=== PATIENT | female | born 2000 | race African-American/Black ===

== ENCOUNTER 2024-01-25 09:04 | Emergency (ER) | payer OTHER, SELFPAY ==
[2024-01-25] VITALS (8 sets, daily range): BP systolic 96–107; BP diastolic 64–73
--- NOTE | 2024-01-25 09:29 | ED.GENMED ---
History of Present Illness
General
Chief Complaint: Abdominal Pain
Source: patient
Time Seen by Provider: 01/25/24 09:18
Travel History
Have you had any contact with someone who has COVID-19?: No
Do you have any symptoms of coronavirus? Fever > 100 degrees, chills, cough, shortness of breath, sore throat, loss of taste or smell, muscle aches, or headache?: No
History of Present Illness
History of Present Illness:
This patient is a 23-year-old female presents emergency department with complaints of lower abdominal pain. The pain first began a few days ago, but got progressed particularly worse this morning which prompted her visit here. Since arrival, the
pain is described as 'manageable'. The pain is episodic without specific provoking or relieving factors and is described as severe 'cramping'. She notes pain across her entire lower abdomen without specific focality to right or left side. She
denies upper mid abdominal pain, back pain, dyspnea, urinary symptoms. Patient has a history of anemia for which she takes iron, and she would like to know what her blood count is today. She worries that she may be more anemic than usual given
that for the last few days she is having episodes of lightheadedness as well as overall fatigue. She denies nosebleeds, vaginal bleeding, hematuria, or bleeding elsewhere. Currently patient describes mild to moderate lower abdominal pain without
any other symptoms. She denies fever, chills, nausea, vomiting, anorexia, or other complaints.LMP was January 07 as expected. In review of systems, patient also notes chest pain that she describes as feeling like a 'weight' that is been there for
months to years, episodic, without specific provoking or relieving factors. She does not have it now.
Past History
Past History
ED Past Medical History: Other (Anemia)
ED Past Surgical History:
Social History
Tobacco: Non-smoker
Alcohol: None
Drug: None
Employment: Employed
Phy Exam
Physical Exam
Physical Exam:
GENERAL: Alert , in no apparent distress
EYE: pupils equal and reactive, conjunctive a pink
NECK: Supple, no significant adenopathy.
ENT: o/p clr, mmm.
CARDIAC: Regular rate and rhythm .
LUNGS: Clear breath sounds bilaterally, no acute respiratory distress, no wheezes/rales/rhonchi
ABDOMEN: Soft, mild lower abdominal tenderness, no r/g, no cvat
NEUROLOGICAL: Alert and oriented, no focal neuro deficits
SKIN: Warm and dry, skin intact.
MUSCULOSKELETAL: No edema, well perfused.
PSYCH: Normal and appropriate interaction.
Course
Orders/Labs/Results
Orders:
Orders
01/25/24 09:32
Cardiac Monitoring- Treatment ONCE
Urinalysis Reflex To Culture Urgent
01/25/24 09:33
Electrocardiogram (*1) Stat
Reason for Study: Abdominal Pain
CT Abd/Pel (IV only)-DH only Urgent
Comment:
Reason For Exam: lower abd pain
EKG- Treatment ONCE
Test Result ONCE
01/25/24 09:35
Complete Blood Count/No Diff Urgent
Comprehensive Metabolic Panel Urgent
HCG, Serum Qualitative Screen Urgent
01/25/24 10:58
* Blood Bank Products Urgent
Blood Bank Products: *Packed RBC Leuko(PRBC's)
Quantity: 1
Transfuse Today: Yes
Reason: Anemia
IV Insert/Care/Rem.- Treatment PRN
01/25/24 11:05
Type+Screen Urgent
Abnormal Lab Results
01/25/24 01/25/24
09:35 11:05
WBC 4.5 L 10^3/uL
(4.8-10.8)
RBC 4.10 L 10^6/uL
(4.20-5.40)
Hgb 7.2 L g/dL
(12.0-16.0)
Hct 24.7 L %
(37.0-47.0)
MCV 60.2 L fL
(81.0-99.0)
MCH 17.6 L pg
(27.0-31.0)
MCHC 29.1 L g/dL
(33.0-37.0)
RDW 23.5 H %
(11.5-14.5)
Chloride 109 H mmol/L
(98-107)
BUN 4 L mg/dl
(7-17)
Creatinine 0.5 L mg/dL
(0.6-1.0)
Crossmatch IS Only See Detail
01/25/24 09:35
01/25/24 09:35
Vital Signs
Initial and Last Documented VS:
Initial Vital Signs
Temp Pulse Resp BP Pulse Ox
98.2 F 79 16 107/73 100
01/25/24 09:09 01/25/24 09:09 01/25/24 09:09 01/25/24 09:09 01/25/24 09:09
Last Documented Vital Signs
Temp Pulse Resp BP Pulse Ox
98.5 F 81 16 99/64 100
01/25/24 14:56 01/25/24 14:56 01/25/24 14:56 01/25/24 14:56 01/25/24 14:56
*Critical Care Note
Total Time (30-74mins, 75-104mins- exclusive of procedures): Not Applicable
Update Note
Update Note:
Patient presents to the Emergency Department with ___abdominal pain
Number and Complexity of Problems Addressed at the Encounter
� Chronic conditions affecting care:
� Acute Exacerbation and/or Progression of Chronic Illness:
� Differential Diagnosis includes: But not limited to menstrual cramps, appendicitis, diverticulitis, etc. etc.
Amount and/or Complexity of Data to be Reviewed and Analyzed
� I performed an independent evaluation of and my interpretation is:
EKG:read by me, nsr, nl rate,nlaxis, no acute ischemic changes
CT:Approximate 2 cm possibly minimally complex right ovarian cyst. Small volume free fluid in the right true pelvis which could be the sequela of recently ruptured or partially ruptured right ovarian cyst. As a result of the
position of the right ovary, if Pelvic Ultrasound is considered, the right ovary likely nott able to be visualized with endovaginal imaging.
Somewhat contracted gallbladder likely postprandial, food material noted within the stomach. No biliary tract dilatation.
Xrays:
Laboratory Studies: neutropenia, anemia 7.2 (no prior to compare, pt unaware of baseline Hgb)
Other:
� Review of other/old records reveals:
� Clinical information was obtained by an independent historian:
� Prescriptions/Medications Considered but not given:
� Further testing considered but not performed:
Risk of Complications and/or Morbidity or Mortality of Patient Management
� Social determinants of health affecting care:
� Discussion with other providers (PCP, Hospitalists, Consultants, etc):
� Escalation of care including admission/observation vs risk of discharge considered:1104 am pt very comfortable, denies pain, in nad, on phone, well appearing. Clinically I highly doubt ovarian torsion given exam, comfort, etc.
Anemia noted...no prior to compare. Case d/w dr Varela, aware of hx, phys, labs etc...recommends/agrees with one unit prbc's now, and ulatimately as outpt she will likely need Fe infusion. Pt goes to residency clinic at [facility], no number
available for me to cntact today. Pt aware of plan now, r/b tx explained, c/s signed and she will be able to f/u with either our heme doctors or her clinic.
ED Attending Note
-
Portions of this chart may have been created with voice recognition software.� Occasional wrong word or��sound alike� substitutions may have occurred due to the inherent limitations of voice recognition software.
Discharge Plan
Departure
Patient Disposition: Home (Routine Discharge)
Date of Disposition: 01/25/24
Time of Disposition: 11:12
Patient with high blood pressure during this ER visit?: No
Condition: Good
Discharge Problem:
Anemia, Ovarian cyst
Instructions: Anemia Caused by Low Iron, Adult (DC), Ovarian Cyst (DC), Abdominal Pain
Referrals:
PRIVATE,PHYSICIAN [Family Provider] -
Julio Varela MD [Active] - Follow up in 1 week
Stand Alone Forms: Return to Work
Activity Restrictions/Additional Instructions:
PLEASE CONTINUE TO TAKE IRON SUPPLEMENTS DAILY. IF YOU DEVELOP DIZZINESS, CHEST PAIN, TROUBLE BREATHING, PALPITATIONS, PERSISTENT/NEW ABDOMINAL PAIN, BLEEDING, OR OTHER WORRISOME SIGNS, GO TO THE ER IMMEDIATELY!
WE SUSPECT YOU WILL NEED AN IRON INFUSION IN THE NEAR FUTRUE. PLEASE CONTACT EITHER DR BLUE, OR DR VARELA, TO [facility] FOR THIS CLOSE FOLLOW UP SOON POSSIBLE. THIS IS VERY IMPORTANT!
Interventions
Interventions:
*Risk Screen - Suicide Last Done: 01/25/24 09:09
*General Assessment Last Done: 01/25/24 09:09
*Neglect/Abuse Screening Last Done: 01/25/24 09:09
ED- Fall Risk Assessment Last Done: 01/25/24 09:51
*ED COVID-19 Vaccine History Last Done: 01/25/24 09:25
WR-Krbipw-Fndmcpzqox Assessment Last Done: 01/25/24 09:25
[2024-01-25 09:51] LABS: Hematocrit 24.7 % (37.0-47.0); Hemoglobin 7.2 g/dL (12.0-16.0); Mean Corp Hgb Conc. 29.1 g/dL (33.0-37.0); Mean Corpuscular Hgb 17.6 pg (27.0-31.0); Mean Corpuscular Volume 60.2 fL (81.0-99.0); Platelet Count 297 10^3/uL (130-400); Red Cell Dist. Width 23.5 % (11.5-14.5); White Blood Cell Count 4.5 10^3/uL (4.8-10.8)
[2024-01-25 10:01] LABS: HCG, Serum Qualitative Screen Negative
[2024-01-25 10:03] LABS: ALT (SGPT) 10 U/L (0-35); AST (SGOT) 19 U/L (14-36); Albumin 3.9 g/dl (3.5-5.0); Alkaline Phosphatase 58 U/L (38-126); Blood Urea Nitrogen 4 mg/dl (7-17); Calcium 8.6 mg/dl (8.4-10.2); Carbon Dioxide 22 mmol/L (22-30); Chloride 109 mmol/L (98-107); Glucose 86 mg/dl (70-99); Potassium 3.6 mmol/L (3.5-5.1); Sodium 136 mmol/L (135-145); Total Protein 7.5 g/dl (6.3-8.2); eGFR > 60.00
== END 2024-01-25 15:36 | disposition home or self-care (01) ==
LOC: EMR 09:04
PROVIDERS: EMERGENCY PHYSICIAN Emergency Medicine
DX: D64.9 Anemia, unspecified (principal); N83.209 Unspecified ovarian cyst, unspecified side
CPT/HCPCS: 99284; 36430; 74177; 80053; 84703; 85027; 86850; 86900; 86901; 86920; 93005; P9016; Q9967

== ENCOUNTER → 2024-03-12 08:48 | Outpatient (REF) | payer OTHER, SELFPAY ==
[2024-03-13 20:17] LABS: Rubella Positive
[2024-03-14 01:14] LABS: Hepatitis B Surface Antibody Negative
[2024-03-14 21:18] LABS: Quantiferon Mitogen minus NIL >10.00 IU/mL; Quantiferon NIL 0.03 IU/mL; Quantiferon TB Gold Plus Negative (Negative)
== END ==
LOC: OHS 08:48
PROVIDERS: ATTENDING PHYSICIAN Nurse Practitioner Family
DX: Z23 Encounter for immunization (principal)
CPT/HCPCS: 36415; 86480; 86706; 86735; 86762; 86765; 86787

== ENCOUNTER 2024-06-06 02:26 | Emergency (ER) | payer OTHER, SELFPAY ==
[2024-06-06 02:28] VITALS: BP 98/60
--- NOTE | 2024-06-06 02:55 | ED.GENMED ---
History of Present Illness
General
Chief Complaint: Abdominal Pain
Source: patient and spouse
Time Seen by Provider: 06/06/24 02:44
History of Present Illness
History of Present Illness:
23-year-old female who is feeling prickly well until approximate 1:30 AM when she developed discomfort across her lower abdomen/pelvic area associated with mild nausea, no vomiting. Pain is not localized to 1 side versus another. She denies
associated chest pain, shortness of breath, fever, chills, vomiting, urinary symptoms, vaginal discharge or bleeding, constipation, diarrhea. Pain is worse with certain movements.
Past History
Past History
ED Past Medical History: Other (Anemia, ovarian cyst)
ED Past Surgical History:
Social History
Tobacco: Non-smoker
Alcohol: None
Drug: None
Personal:
Living: with family
Employment: Employed
Phy Exam
Physical Exam
Physical Exam:
GENERAL: Alert , in no apparent distress
EYE: pupils equal and reactive
NECK: Supple, no significant adenopathy.
ENT: o/p clr, mmm.
CARDIAC: Regular rate and rhythm .
LUNGS: Clear breath sounds bilaterally, no acute respiratory distress, no wheezes/rales/rhonchi
ABDOMEN: Soft, diffuse lower abdominal Tenderness, no r/g, no cvat
NEUROLOGICAL: Alert and oriented, no focal neuro deficits
SKIN: Warm and dry, skin intact.
MUSCULOSKELETAL: No edema, well perfused.
PSYCH: Normal and appropriate interaction.
Course
Orders/Labs/Results
Orders:
Orders
06/06/24 02:52
0.9% Sodium Chloride 500 ml [Nss] 500 ml IV BOLUS
Ketorolac [Toradol] 15 mg IV NOW STA
06/06/24 02:54
Test Result ONCE
US Pelvis W Transvag Combined Urgent
Reason For Exam: LOWER PELVIC/ABD PAIN
06/06/24 03:04
Complete Blood Count/No Diff Urgent
Comprehensive Metabolic Panel Urgent
HCG, Serum Qualitative Screen Urgent
06/06/24 03:58
0.9% Sodium Chloride 1000 ml [Nss] 1,000 ml IV BOLUS
06/06/24 04:54
CT Abd/pel W Iv And Oral Contr Urgent
Comment:
Reason For Exam: abdominal pain
Iohexol [Omnipaque] See Protocol PO NOW STA
Abnormal Lab Results
06/06/24
03:04
WBC 12.0 H 10^3/uL
(4.8-10.8)
RBC 3.82 L 10^6/uL
(4.20-5.40)
Hgb 7.9 L g/dL
(12.0-16.0)
Hct 24.4 L %
(37.0-47.0)
MCV 63.9 L fL
(81.0-99.0)
MCH 20.7 L pg
(27.0-31.0)
MCHC 32.4 L g/dL
(33.0-37.0)
RDW 21.0 H %
(11.5-14.5)
Potassium 3.2 L mmol/L
(3.5-5.1)
Glucose 122 H mg/dl
(70-99)
06/06/24 03:04
06/06/24 03:04
Vital Signs
Initial and Last Documented VS:
Initial Vital Signs
Temp Pulse Resp BP Pulse Ox
98.0 F 101 18 98/60 100
06/06/24 02:28 06/06/24 02:28 06/06/24 02:28 06/06/24 02:28 06/06/24 02:28
Last Documented Vital Signs
Temp Pulse Resp BP Pulse Ox
98.0 F 85 16 110/76 100
06/06/24 02:28 06/06/24 05:09 06/06/24 05:09 06/06/24 05:09 06/06/24 05:09
Update Note
Update Note:
Patient presents to the Emergency Department with abdominal/pelvic pain
Number and Complexity of Problems Addressed at the Encounter
� Chronic conditions affecting care:
� Acute Exacerbation and/or Progression of Chronic Illness:
� Differential Diagnosis includes: But not limited to ruptured ovarian cyst, ovarian torsion, ectopic , cystitis, appendicitis, etc. etc.
Amount and/or Complexity of Data to be Reviewed and Analyzed
� I performed an independent evaluation of and my interpretation is:
EKG:
CT:
Xrays:
Laboratory Studies:
Other: Vision report ultrasound pelvis trace fluid in endometrial cavity endometrial thickness 3 mm right ovary normal with normal flow left ovary normal with normal flow no free fluid in the pelvis
� Review of other/old records reveals:
� Clinical information was obtained by an independent historian: who is bedside
� Prescriptions/Medications Considered but not given:
� Further testing considered but not performed:
Risk of Complications and/or Morbidity or Mortality of Patient Management
� Social determinants of health affecting care:
� Discussion with other providers (PCP, Hospitalists, Consultants, etc):
� Escalation of care including admission/observation vs risk of discharge considered:401 AM Pt resting comfortably, pain improved, declines further pain meds. Awaiting US.
Given ultrasound essentially unremarkable, highly doubt TOA, ovarian torsion, ruptured ovarian cyst, etc. as a cause of patient's pain. Will order CAT scan of abdomen and pelvis to further investigate.
ED Attending Note
-
Portions of this chart may have been created with voice recognition software.� Occasional wrong word or��sound alike� substitutions may have occurred due to the inherent limitations of voice recognition software.
Discharge Plan
Departure
Patient with high blood pressure during this ER visit?: No
Condition: Good
Discharge Problem:
Abdominal pain
Instructions: Abdominal Pain
Prescriptions:
No Action
No Current Medications
0
Referrals:
NONE,* [Family Provider] -
Activity Restrictions/Additional Instructions:
PLEASE SEE YOUR DOCTOR IN CLOSE FOLLOW UP. IF YOU DEVELOP FEVER, CHILLS, VOMITING, CHEST PAIN, TROUBLE BREATHING, INCREASING/NEW/PERSISTENT PAIN, OR OTHER WORRISOME SIGNS, GO TO THE ER IMMEDIATELY!
Interventions
Interventions:
*Risk Screen - Suicide Last Done: 06/06/24 02:28
*General Assessment Last Done: 06/06/24 02:28
*Neglect/Abuse Screening Last Done: 06/06/24 02:28
ED- Fall Risk Assessment Last Done: 06/06/24 03:27
DU-Zmdgtg-Ynjvafszrz Assessment Last Done: 06/06/24 03:27
Discharge Date and Time
Print Language: HAITIAN
[2024-06-06] MEDS: TORADOL 15 MG IV ×2 (03:04→08:01)
[2024-06-06] MEDS: NSS 500 IV (03:04)
[2024-06-06 03:14] LABS: Hematocrit 24.4 % (37.0-47.0); Hemoglobin 7.9 g/dL (12.0-16.0); Mean Corp Hgb Conc. 32.4 g/dL (33.0-37.0); Mean Corpuscular Hgb 20.7 pg (27.0-31.0); Mean Corpuscular Volume 63.9 fL (81.0-99.0); Platelet Count 253 10^3/uL (130-400); Red Blood Cell Count 3.82 10^6/uL (4.20-5.40)
[2024-06-06 03:19] LABS: HCG, Serum Qualitative Screen Negative
[2024-06-06 03:25] LABS: ALT (SGPT) < 10 U/L (0-35); AST (SGOT) 20 U/L (14-36); Albumin 4.1 g/dl (3.5-5.0); Alkaline Phosphatase 60 U/L (38-126); Blood Urea Nitrogen 8 mg/dl (7-17); Calcium 9.4 mg/dl (8.4-10.2); Carbon Dioxide 24 mmol/L (22-30); Chloride 105 mmol/L (98-107); Glucose 122 mg/dl (70-99); Potassium 3.2 mmol/L (3.5-5.1); Sodium 137 mmol/L (135-145); Total Bilirubin 0.7 mg/dl (0.2-1.3); Total Protein 7.4 g/dl (6.3-8.2); eGFR > 60.00
[2024-06-06] MEDS: NSS 1000 IV (03:58)
--- NOTE | 2024-06-06 04:01 | EDRN ---
Patients pain is much better, not full for ultrasound yet, hung more fluids.
[2024-06-06] MEDS: OMNIPAQUE 50 ML PO (05:04)
[2024-06-06 05:09] VITALS: BP 110/76
--- NOTE | 2024-06-06 05:10 | EDRN ---
Updated patient on results and plan for CT scan, aware plan for drinking contrast and then will go for CT around 0700.
--- NOTE | 2024-06-06 06:49 | EDRN ---
Encouraged patient to finish up drinking contrast, as she will be going to CT soon.
[2024-06-06 08:03] VITALS: BP 122/80
[2024-06-06 09:29] LABS: Urine Albumin Negative (Neg - Trace); Urine Bilirubin Negative (Negative); Urine Character Clear (Clear); Urine Color Yellow; Urine Glucose Negative (Negative); Urine Ketone Negative (Negative); Urine Leukocyte 1+ (Negative); Urine Nitrite Negative (Negative); Urine Occult Blood 4+ (Negative); Urine Specific Gravity 1.005 (<1.030); Urine Urobilinogen Negative (Neg - 1+); Urine pH 6.5 (5.0-9.0)
[2024-06-06 09:35] LABS: Urine Bacteria Few (Negative); Urine Red Blood Cell 0-2 /HPF (0-2)
--- NOTE | 2024-06-06 09:37 | ED.ADDNOTE ---
ED Addendum
ED Addendum
ED Addendum Note:
I evaluated patient at bedside at 9:30 AM, white count slightly elevated 12.0, chemistries unremarkable however potassium noted to be at 3.2, hCG negative. Pelvic ultrasound reportedly unremarkable. CT of the abdomen pelvis shows no clear cause of
her pain but did show some mild bladder wall did show mild bladder wall thickening�urinalysis unremarkable. I informed patient of the CT results.
[2024-06-06] MEDS: KCL ELIXIR 40 MEQ PO (09:53)
== END 2024-06-06 10:00 | disposition home or self-care (01) ==
LOC: EMR 02:26
PROVIDERS: Emergency Medicine; EMERGENCY PHYSICIAN Emergency Medicine
DX: R10.30 Lower abdominal pain, unspecified (principal); D64.9 Anemia, unspecified
CPT/HCPCS: 99284; 96374; 96376; 96361; 74177; 76830; 76856; 80053; 81003; 81015; 84703; 85027; 87086; Q9967

== ENCOUNTER 2025-03-20 20:07 | Emergency (ER) | payer OTHER, SELFPAY ==
[2025-03-20 20:11] VITALS: BP 105/72
[2025-03-20] MEDS: TYLENOL ORAL SOLUTION 650 MG PO (20:27)
[2025-03-20] MEDS: Pyridium 100 MG PO (20:28)
[2025-03-20 20:31] LABS: Urine Albumin 1+ (Neg - Trace); Urine Bilirubin Negative (Negative); Urine Character Clear (Clear); Urine Color Yellow; Urine Glucose Negative (Negative); Urine Ketone Negative (Negative); Urine Leukocyte 1+ (Negative); Urine Nitrite Negative (Negative); Urine Occult Blood Negative (Negative); Urine Specific Gravity 1.015 (<1.030); Urine Urobilinogen 2+ (Neg - 1+)
[2025-03-20 20:42] LABS: % Basophils 1.1 % (0-2); % Eosinophils 7.2 % (0-6); % Immature Granulocytes 0.2 % (0-0.5); % Monocytes 11.1 % (1.7-9.3); % Neutrophils 30.4 % (42.2-75.2); Absolute Basophils 0.1 10^3/uL (0-0.2); Absolute Eosinophils 0.4 10^3/uL (0-0.7); Absolute Lymphocytes 2.8 10^3/uL (1.2-3.4); Absolute Monocytes 0.6 10^3/uL (0.1-0.6); Absolute Neutrophils 1.7 10^3/uL (1.4-6.5); Hematocrit 28.8 % (37.0-47.0); Hemoglobin 8.5 g/dL (12.0-16.0); Mean Corp Hgb Conc. 29.5 g/dL (33.0-37.0); Mean Corpuscular Hgb 18.6 pg (27.0-31.0); Mean Platelet Volume 10.4 fL (7.4-10.4); Nucleated Red Blood Cells % 0 %; Platelet Count 362 10^3/uL (130-400); Red Blood Cell Count 4.57 10^6/uL (4.20-5.40); Red Cell Dist. Width 22.1 % (11.5-14.5); White Blood Cell Count 5.6 10^3/uL (4.8-10.8)
[2025-03-20 20:43] LABS: Urine Squamous Cell 26-30 /LPF (Few)
[2025-03-20 20:44] LABS: Urine Bacteria Many (Negative); Urine Mucus Moderate; Urine Red Blood Cell 0-2 /HPF (0-2)
[2025-03-20 20:48] LABS: HCG, Serum Qualitative Screen Negative
[2025-03-20 20:50] LABS: Anisocytosis 1+; Hypochromasia 3+; Microcytosis 1+; Normal RBC Morphology No; Target Cells 1+
[2025-03-20 21:24] LABS: ALT (SGPT) 11 U/L (0-35); AST (SGOT) 18 U/L (14-36); Albumin 4.8 g/dl (3.5-5.0); Alkaline Phosphatase 45 U/L (38-126); Blood Urea Nitrogen 7 mg/dl (7-17); Calcium 9.6 mg/dl (8.4-10.2); Carbon Dioxide 25 mmol/L (22-30); Chloride 110 mmol/L (98-107); Glucose 112 mg/dl (70-99); Potassium 3.7 mmol/L (3.5-5.1); Sodium 144 mmol/L (135-145); Total Bilirubin 1.1 mg/dl (0.2-1.3); eGFR > 60.00
[2025-03-20 23:02] VITALS: BP 102/67
[2025-03-21 00:30] VITALS: BP 100/69
[2025-03-21 00:32] VITALS: BMI 19.0
--- NOTE | 2025-03-21 01:10 | ED.GENMED ---
History of Present Illness
General
Chief Complaint: Urinary Symptoms
Time Seen by Provider: 03/21/25 00:26
History of Present Illness
History of Present Illness:
24-year-old female with history of anemia presenting to the emergency department for 1 to 2 weeks of urinary symptoms. Patient reports pain with urination and after urination. Reports history of UTIs in the past, most recently was about a year
ago. Denies any blood in her urine. Denies any abnormal discharge or concern for STD. Does note history of kidney infections in the past, which is her concern. However denies any back pain or fever. Notes some generalized lower abdominal
discomfort. Denies any surgical history. Denies chest pain or difficulty breathing or additional acute medical complaints
Past History
Past History
ED Past Medical History: Other (Anemia, ovarian cyst)
ED Past Surgical History:
Social History
Tobacco: Non-smoker
Alcohol: None
Drug: None
Personal:
Living: with family
Employment: Employed
Phy Exam
Physical Exam
Physical Exam:
General: Well-appearing, no clinical signs of dehydration, nontoxic and in no acute distress
HEENT: protecting airway
Neck: appears supple
CV: Normal heart rate, regular rhythm
Resp: No accessory muscle use, no increased work of breathing, lungs clear to auscultation bilaterally
Abd: Soft and non-distended, mild tenderness to the suprapubic abdomen. No lateralizing tenderness
Extremities: No deformities, no swelling
Neuro: alert, no focal neurologic deficit
: deferred
Rectal: deferred
Psych: Normal affect
Skin: Intact
Course
Orders/Labs/Results
Orders:
Orders
03/20/25 20:17
Test Result ONCE
03/20/25 20:22
Acetaminophen [Tylenol] 650 mg .ROUTE .STK-MED ONE
Phenazopyridine HCl [Pyridium] 100 mg .ROUTE .STK-MED ONE
03/20/25 20:24
Complete Blood Count/With Diff Urgent
Comprehensive Metabolic Panel Urgent
HCG, Serum Qualitative Screen Urgent
Urinalysis Reflex To Culture Urgent
Date Specimen was Collected: 03/20/25
Time Specimen was Collected: 20:17
Urine Microscopic Reflex Cult Urgent
Urine Culture Urgent
VISHAL Source: U
Specimen Description:
Date Specimen was Collected: 03/20/25
Time Specimen was Collected: 20:17
03/20/25 20:25
Acetaminophen [Tylenol Oral Solution] 650 mg .ROUTE .STK-MED ONE
03/20/25 20:26
Acetaminophen [Tylenol Oral Solution] 650 mg PO NOW STA
03/20/25 20:27
Phenazopyridine HCl [Pyridium] 100 mg PO NOW STA
03/21/25 01:05
Cephalexin Monohydrate [Keflex] 500 mg PO NOW STA
Abnormal Lab Results
03/20/25
20:24
Hgb 8.5 L g/dL
(12.0-16.0)
Hct 28.8 L %
(37.0-47.0)
MCV 63.0 L fL
(81.0-99.0)
MCH 18.6 L pg
(27.0-31.0)
MCHC 29.5 L g/dL
(33.0-37.0)
RDW 22.1 H %
(11.5-14.5)
Neutrophils % 30.4 L %
(42.2-75.2)
Monocytes % 11.1 H %
(1.7-9.3)
Eosinophils % 7.2 H %
(0-6)
Chloride 110 H mmol/L
(98-107)
Glucose 112 H mg/dl
(70-99)
Total Protein 9.0 H g/dl
(6.3-8.2)
Urine Urobilinogen 2+ A
(Neg - 1+)
Leukocyte Esterase Rfl 1+ A
(Negative)
Urine WBC (Reflex) 11-15 A /HPF
(0-5)
Urine Bacteria (Reflex) Many A
(Negative)
Urine Albumin (Reflex) 1+ A
(Neg - Trace)
03/20/25 20:24
03/20/25 20:24
Vital Signs
Initial and Last Documented VS:
Initial Vital Signs
Temp Pulse Resp BP Pulse Ox
98.8 F 100 20 105/72 100
03/20/25 20:11 03/20/25 20:11 03/20/25 20:11 03/20/25 20:11 03/20/25 20:11
Last Documented Vital Signs
Temp Pulse Resp BP Pulse Ox
97.7 F 61 18 100/69 100
03/21/25 00:30 03/21/25 00:30 03/21/25 00:30 03/21/25 00:30 03/21/25 00:30
MDM/Problems Addressed
MDM/Problems Addressed:
24-year-old female presenting to the emergency department for urinary complaint. Vital signs on arrival are normal
On exam patient resting comfortably, no acute distress, nontoxic. Mild tenderness to the suprapubic abdomen without lateralizing tenderness. No CVA tenderness. Ultimately low suspicion for serious intra-abdominal process or infection,
particularly without present concern for pyelonephritis. Labs obtained prior to my assessment, no leukocytosis. Anemia appears to be at baseline. Urine does show evidence of infection. At this time suspect uncomplicated cystitis. Will start
patient on cephalexin and send urine culture. Otherwise no indication for advanced imaging. Feel stable for discharge. Return precautions discussed and patient verbalized understanding
*Critical Care Note
Total Time (30-74mins, 75-104mins- exclusive of procedures): Not Applicable
ED Attending Note
-
Portions of this chart may have been created with voice recognition software.� Occasional wrong word or��sound alike� substitutions may have occurred due to the inherent limitations of voice recognition software.
Discharge Plan
Departure
Prescriptions:
No Action
No Current Medications
0
Referrals:
UNKNOWN,NO INTERVIEW [Family Provider] -
Interventions
Interventions:
*Risk Screen - Suicide Last Done: 03/20/25 20:11
*General Assessment Last Done: 03/20/25 20:11
*Neglect/Abuse Screening Last Done: 03/20/25 20:11
*ED- Fall Risk Assessment Last Done: 03/20/25 20:11
*ED COVID-19 Vaccine History Last Done: 03/20/25 20:11
Discharge Date and Time
Print Language: GERMAN
[2025-03-21] MEDS: KEFLEX 500 MG PO (01:22)
== END 2025-03-21 01:20 | disposition home or self-care (01) ==
LOC: EMR 20:07
PROVIDERS: EMERGENCY PHYSICIAN Student in an Organized Health Care Education/Training Program
DX: N39.0 Urinary tract infection, site not specified (principal); D64.9 Anemia, unspecified
CPT/HCPCS: 99283; 80053; 81003; 81015; 84703; 85025; 87086

== ENCOUNTER 2025-05-05 10:39 | Emergency (ER) | payer OTHER, SELFPAY ==
[2025-05-05 10:40] VITALS: BP 114/79
[2025-05-05] MEDS: NSS 1000 IV (12:25)
[2025-05-05] MEDS: ZOFRAN 4 MG IV (12:25)
[2025-05-05 12:32] VITALS: BP 92/73
--- NOTE | 2025-05-05 12:47 | ED.GENMED ---
History of Present Illness
General
Chief Complaint: Problems
Source: patient
Exam Limitations: none
Time Seen by Provider: 05/05/25 11:17
Nursing documentation reviewed up to this point in time: agreed with
History of Present Illness
History of Present Illness:
24-year-old female 8 weeks 2 prior C-sections limited [place] presents with abdominal cramping, nausea cramping in her legs, no vaginal bleeding she is considering termination for this , no ultrasound yet this no dysuria
no frequency
Past History
Past History
ED Past Medical History: Other (Anemia, ovarian cyst)
ED Past Surgical History:
Social History
Tobacco: Non-smoker
Alcohol: None
Drug: None
Personal:
Living: with family
Employment: Employed
Review of Systems
Review of Systems
All Other Systems: Not applicable
Constitutional: Reports fatigue; Denies fever
EENT: Reports no symptoms
Respiratory: Reports no symptoms
ABD/GI: Reports abdominal pain and nausea
: Denies dysuria
Musculoskeletal: Reports muscle stiffness
Neurological: Reports weakness
Endocrine: Reports no symptoms
Phy Exam
Physical Exam
Physical Exam:
Physical Exam
General: no apparent distress, not acutely ill
Neck: No jaundice
Heart: s1/s2 regular rate and rhythm, no murmur. equal radial pulses.
Lungs: no acute respiratory distress. clear bilaterally
Abdomen: Soft mild suprapubic tenderness
Neuro: alert and oriented. no focal neurological deficits
Skin: no rash
Psychiatric: well kept. interactive and cooperative
Extremities: no edema.
Course
Orders/Labs/Results
Orders:
Orders
05/05/25 12:07
US 1st Trimester Urgent
Comment:
Reason For Exam: pain
05/05/25 12:08
Urinalysis Reflex To Culture Urgent
0.9% Sodium Chloride 1000 ml [Nss] 1,000 ml IV BOLUS
Ondansetron Injectable [Zofran] 4 mg IV NOW STA
05/05/25 12:25
Type+Screen Urgent
BBK Wristband Number:
Beta HCG Quantitative Urgent
Is this a screen?: No
Complete Blood Count/With Diff Urgent
Comprehensive Metabolic Panel Urgent
Vital Signs
Initial and Last Documented VS:
Initial Vital Signs
Temp Pulse Resp BP Pulse Ox
98.9 F 78 16 114/79 100
05/05/25 10:40 05/05/25 10:40 05/05/25 10:40 05/05/25 10:40 05/05/25 10:40
Last Documented Vital Signs
Temp Pulse Resp BP Pulse Ox
98.9 F 79 18 92/73 100
05/05/25 10:40 05/05/25 12:32 05/05/25 12:32 05/05/25 12:32 05/05/25 12:48
*Pulse Oximetry
SaO2: 100
Oxygen Mode of Delivery: Room air
ED Attending Note
-
Portions of this chart may have been created with voice recognition software.� Occasional wrong word or��sound alike� substitutions may have occurred due to the inherent limitations of voice recognition software.
Discharge Plan
Departure
Prescriptions:
No Action
cephalexin 500 mg capsule
500 mg PO BID 7 Days Qty: 14 0RF
Referrals:
Joceline Newman MD [Family Provider, Internal Medicine]
Interventions
Interventions:
*Risk Screen - Suicide Last Done: 05/05/25 10:43
*General Assessment Last Done: 05/05/25 12:33
*Neglect/Abuse Screening Last Done: 05/05/25 10:43
*ED- Fall Risk Assessment Last Done: 05/05/25 12:33
*ED COVID-19 Vaccine History Last Done: 05/05/25 12:33
XO-Rjpjdv-Ojcupmxzks Assessment Last Done: 05/05/25 12:33
ED-Female Genitourinary Assessment Last Done: 05/05/25 12:33
Discharge Date and Time
Print Language: MALTESE
[2025-05-05 13:00] VITALS: BP 98/86
[2025-05-05 13:05] LABS: ALT (SGPT) < 10 U/L (0-35); AST (SGOT) 15 U/L (14-36); Albumin 4.0 g/dl (3.5-5.0); Alkaline Phosphatase 44 U/L (38-126); Blood Urea Nitrogen 2 mg/dl (7-17); Calcium 9.3 mg/dl (8.4-10.2); Carbon Dioxide 23 mmol/L (22-30); Chloride 106 mmol/L (98-107); Glucose 82 mg/dl (70-99); Potassium 3.9 mmol/L (3.5-5.1); Sodium 135 mmol/L (135-145); Total Protein 7.7 g/dl (6.3-8.2); eGFR > 60.00
[2025-05-05 13:09] LABS: Hematocrit 28.6 % (37.0-47.0); Hemoglobin 8.6 g/dL (12.0-16.0); Mean Corp Hgb Conc. 30.1 g/dL (33.0-37.0); Mean Corpuscular Volume 62.9 fL (81.0-99.0); Nucleated Red Blood Cells % 0 %; Platelet Count 311 10^3/uL (130-400); Red Cell Dist. Width 23.1 % (11.5-14.5)
[2025-05-05 13:49] LABS: Beta HCG Quantitative 252000.00 mIU/ml
[2025-05-05 14:13] VITALS: BP 112/71
[2025-05-05 14:22] LABS: Anisocytosis 2+; Hypochromasia 1+; Normal RBC Morphology No; Polychromasia 1+
[2025-05-05 14:23] LABS: Ovalocytes 1+; Schistocytes FEW; Target Cells 1+
[2025-05-05 14:24] LABS: Acanthocytes FEW
== END 2025-05-05 14:26 | disposition home or self-care (01) ==
LOC: EMR 10:39
PROVIDERS: EMERGENCY PHYSICIAN Emergency Medicine; FAMILY PHYSICIAN Internal Medicine
DX: O21.8 Other vomiting complicating pregnancy (principal); K92.0 Hematemesis; Z3A.08 8 weeks gestation of pregnancy; R10.9 Unspecified abdominal pain; R25.2 Cramp and spasm; O99.011 Anemia complicating pregnancy, first trimester; Z91.018 Allergy to other foods
CPT/HCPCS: 99284; 96374; 76801; 80053; 84702; 85025; 86850; 86900; 86901

== ENCOUNTER 2025-06-25 23:58 | Emergency (ER) | payer OTHER, SELFPAY ==
[2025-06-26 00:03] VITALS: BP 100/62
--- NOTE | 2025-06-26 02:28 | ED.GENMED ---
History of Present Illness
General
Chief Complaint: Allergic Reaction
Source: patient
Exam Limitations: none
Time Seen by Provider: 06/26/25 02:27
Nursing documentation reviewed up to this point in time: agreed with
History of Present Illness
History of Present Illness:
Note:
CHIEF COMPLAINT(S)
Rash and itching for two days.
HISTORY OF PRESENT ILLNESS
The patient is a 24-year-old female with pmh of eczema, anemia, ovarian cysts presenting with a rash that began two days ago. She has eczema hx but reports that this rash is different. She reports the rash is intensely itchy and describes it as
resembling hives, with raised bumps primarily on her arms but also affecting her back and legs. It started on her arms and then it spread. The patient has not observed any lesions inside her mouth. The rash does not peel or blister. There are no
reported symptoms of fever or respiratory distress, such as difficulty breathing or swelling of the lips or tongue. The patient associates previous episodes of a similar rash with exposure to blueberries and cat fur. She denies any recent exposures
to cats. Recently, she introduced a new body wash as well as sun screen sunscreen which she has never used on her body before. She denies difficulty swallowing. She states that the rash is not painful.
PHYSICAL EXAM
General: Alert, no acute distress.
Skin: Warm, dry. Urticaria noted to the bilateral upper extremities, upper chest wall, upper abdomen
Neck: Supple, trachea midline.
Eye Ears, nose, mouth and throat: Oral mucosa moist, no mouth lesions. Uvula midline.
Cardiac: Regular rate
Respiratory: Normal breathing; no distress reported.
Gastrointestinal: Abdomen nondistended
Neurological: Alert and oriented to person, place, time, and situation, No focal neurological deficit observed.
Psychiatric: Cooperative, appropriate mood & affect.
PLAN
The plan includes administering medications to provide relief from the itching and allergic response. The patient was given a dosage of diphenhydramine, a steroid, and famotidine. Due to challenges with swallowing pills, the patient was offered
liquid medication formulations however she was able to get the pills down. Patient will be started on steroid taper.
DIFFERENTIAL DIAGNOSIS
The Differential Diagnosis includes, in no particular order and is not limited to:
- Allergic dermatitis
- Urticaria
- Contact dermatitis
- Drug eruption
- Viral exanthem
- Atopic dermatitis
- Pityriasis rosea
- Scabies
- Psoriasis
- Erythema multiforme
CHART REVIEW
Review your session documentation from 05/05/25 patient seen for and vomiting in
No discharge summary in [facility] to review
MDM/DISPOSITION
24 year-old female with a past medical history of eczema esents to the emergency apartment with concerns of a itchy rash theo diffusely. She has not tried any medications for this. She compares the rash to the time when she had an allergic reaction
to a cat . She denies any contact with cats. Of no, she did use a new sunscreen and body wash recently. Exam she's still appearing in no distress. Her airways intact. There's no intro oral lesions. Rash consistent with urticaria. Suspect contact
dermatitis versus allergic reaction period patient will be served on prednisone. Patient given Benadryl and famotidine here in the ER. Patient also requesting a refill of her steroid cream for her history of eczema. Refill sent. Stress follow up
with primary care provider. Patient stable for discharge.
Past History
Past History
ED Past Medical History: Other (Anemia, ovarian cyst)
ED Past Surgical History:
Social History
Tobacco: Non-smoker
Alcohol: None
Drug: None
Personal:
Living: with family
Employment: Employed
Review of Systems
Review of Systems
All Other Systems: ROS reviewed and negative except as documented in HPI and ROS
Phy Exam
Physical Exam
Physical Exam:
see hpi
Course
Orders/Labs/Results
Orders:
Orders
06/26/25 02:39
Diphenhydramine [Benadryl] 25 mg PO NOW STA
Famotidine [Pepcid] 20 mg PO NOW STA
Prednisone [Deltasone] 50 mg PO NOW STA
Vital Signs
Initial and Last Documented VS:
Initial Vital Signs
Temp Pulse Resp BP Pulse Ox
98.8 F 81 20 100/62 100
06/26/25 00:03 06/26/25 00:03 06/26/25 00:03 06/26/25 00:03 06/26/25 00:03
Last Documented Vital Signs
Temp Pulse Resp BP Pulse Ox
98.8 F 80 18 104/71 100
06/26/25 00:03 06/26/25 03:15 06/26/25 03:15 06/26/25 03:15 06/26/25 03:15
*Pulse Oximetry
SaO2: 100
Oxygen Mode of Delivery: Room air
Patient hypoxic: no
*Critical Care Note
Total Time (30-74mins, 75-104mins- exclusive of procedures): Not Applicable
ED Attending Note
-
Portions of this chart may have been created with voice recognition software.� Occasional wrong word or��sound alike� substitutions may have occurred due to the inherent limitations of voice recognition software.
Discharge Plan
Departure
Patient Disposition: Home (Routine Discharge)
Date of Disposition: 06/26/25
Time of Disposition: 03:11
Patient with high blood pressure during this ER visit?: No
Condition: Good
Discharge Problem:
Contact dermatitis
Instructions: Allergic reaction - ED (DC), BLOOD PRESSURE
Prescriptions:
New
triamcinolone acetonide 0.5 % cream
1 applic topical BID Qty: 15 0RF
prednisone 10 mg Tablet
See Rx Instructions .ROUTE .COMPLEX Qty: 30 0RF
Rx Instructions:
Take By Mouth:
40 mg daily x3 days, 30 mg daily x3 days,
20 mg daily x3 days, 10 mg daily x3 days.
No Action
cephalexin 500 mg capsule
500 mg PO BID 7 Days Qty: 14 0RF
ondansetron 4 mg tablet,disintegrating
4 mg PO Q8H PRN (Reason: nausea and vomiting) Qty: 14 0RF
Referrals:
PRIVATE,PHYSICIAN [Family Provider, Internal Medicine]
Activity Restrictions/Additional Instructions:
You have been given a refill of your triamcinolone 1% cream. I would recommend holding off on the cream until the prednisone course is completed. You can resume using this for your eczema after your allergic reaction has resolved. Please
follow-up with your primary care provider.
Prednisone has been sent to your pharmacy. Please follow instructions for dosing with taper.
PLEASE RETURN TO EMERGENCY DEPARTMENT SHOULD YOU DEVELOP ANY ACUTE WORSENING OR SYMPTOMS, INTRAORAL LESIONS, TONGUE OR LIP SWELLING, FEVERS OR CHILLS, CHEST PAIN, SHORTNESS OF BREATH, PEELING OF THE SKIN, BLISTERING, OR ANY OTHER SIGNS OR SYMPTOMS
WORRISOME TO YOU.
Interventions
Interventions:
*Risk Screen - Suicide Last Done: 06/26/25 00:03
*General Assessment Last Done: 06/26/25 00:03
*Neglect/Abuse Screening Last Done: 06/26/25 00:03
*ED- Fall Risk Assessment Last Done: 06/26/25 00:03
*ED COVID-19 Vaccine History Last Done: 06/26/25 00:03
*Nursing Disposition Last Done: 06/26/25 03:15
ED- Cardiac Assessment Last Done: 06/26/25 02:23
ED- Pulmonary Assessment Last Done: 06/26/25 02:23
ED-Skin Assessment Last Done: 06/26/25 02:23
Discharge Date and Time
Discharge Date/Time: 06/26/25 03:15
Print Language: PORTUGUESE
[2025-06-26] MEDS: BENADRYL 25 MG PO (02:45)
[2025-06-26] MEDS: PEPCID 20 MG PO (02:46)
[2025-06-26] MEDS: DELTASONE 50 MG PO (02:46)
[2025-06-26 03:15] VITALS: BP 104/71
== END 2025-06-26 03:15 | disposition home or self-care (01) ==
LOC: EMR 23:58
PROVIDERS: EMERGENCY PHYSICIAN Emergency Medicine
DX: L25.9 Unspecified contact dermatitis, unspecified cause (principal)
CPT/HCPCS: 99283

== ENCOUNTER 2025-09-08 20:04 | Emergency (ER) | payer OTHER, SELFPAY ==
[2025-09-08 20:08] VITALS: BP 111/78
[2025-09-08 20:44] LABS: Urine Character Clear (Clear)
[2025-09-08 20:49] LABS: Hematocrit 26.0 % (37.0-47.0); Hemoglobin 7.7 g/dL (12.0-16.0); Mean Corp Hgb Conc. 29.6 g/dL (33.0-37.0); Mean Corpuscular Volume 63.1 fL (81.0-99.0); Nucleated Red Blood Cells % 0 %; Platelet Count 371 10^3/uL (130-400); Red Cell Dist. Width 22.5 % (11.5-14.5)
[2025-09-08 20:55] LABS: Urine Red Blood Cell 0-2 /HPF (0-2); Urine Squamous Cell 16-20 /LPF (Few); Urine White Cell 0-2 /HPF (0-5)
[2025-09-08 21:11] LABS: HCG, Serum Qualitative Screen Positive
[2025-09-08 21:14] LABS: ALT (SGPT) < 10 U/L (0-35); AST (SGOT) 16 U/L (14-36); Albumin 4.3 g/dl (3.5-5.0); Alkaline Phosphatase 52 U/L (38-126); Blood Urea Nitrogen 7 mg/dl (7-17); Calcium 9.7 mg/dl (8.4-10.2); Carbon Dioxide 24 mmol/L (22-30); Chloride 102 mmol/L (98-107); Glucose 88 mg/dl (70-99); Potassium 3.7 mmol/L (3.5-5.1); Sodium 132 mmol/L (135-145); Total Protein 8.2 g/dl (6.3-8.2); eGFR > 60.00
[2025-09-08 21:20] LABS: Anisocytosis 2+; Hypochromasia 3+; Macrocytosis 1+; Microcytosis 1+; Normal RBC Morphology No; Target Cells 3+
[2025-09-08] MEDS: TYLENOL SUSPENSION 500 MG PO (23:05)
--- NOTE | 2025-09-08 23:14 | ED.GENMED ---
History of Present Illness
General
Chief Complaint: Abdominal Pain
Time Seen by Provider: 09/08/25 22:16
History of Present Illness
History of Present Illness:
25-year-old female presenting to the emergency department for general abdominal pain. Notes symptoms started today. Also worried because her menstrual cycle is late. She was supposed to get her menstrual cycle on 09/05 with last menstrual cycle
08/06. Denies vomiting. Notes recent in office in May. Denies fever. Notes surgical history of 2 C-sections. Denies fever. Notes history of UTI with some discomfort with urination. Denies additional acute medical complaints
Past History
Past History
ED Past Medical History: Other (Anemia, ovarian cyst)
ED Past Surgical History:
Social History
Tobacco: Non-smoker
Alcohol: None
Drug: None
Personal:
Living: with family
Employment: Employed
Phy Exam
Physical Exam
Physical Exam:
General: Well-appearing, no clinical signs of dehydration, nontoxic and in no acute distress
HEENT: protecting airway
Neck: appears supple
CV: Normal heart rate
Resp: No accessory muscle use, no increased work of breathing, lungs clear to auscultation bilaterally
Abd: Soft and non-distended, generalized nonfocal tenderness
Extremities: No deformities, no swelling
Neuro: alert, no focal neurologic deficit
: deferred
Rectal: deferred
Psych: Normal affect
Skin: Intact
Course
Orders/Labs/Results
Orders:
Orders
09/08/25 20:11
Test Result ONCE
09/08/25 20:20
Beta HCG Quantitative Urgent
Is this a screen?: Yes
Comment: ADD ON
Complete Blood Count/With Diff Urgent
Comprehensive Metabolic Panel Urgent
HCG, Serum Qualitative Screen Urgent
Urinalysis Reflex To Culture Urgent
Date Specimen was Collected: 09/08/25
Time Specimen was Collected: 20:11
Urine Microscopic Reflex Cult Urgent
09/08/25 22:38
1st Trimester US [US 1st Trimester] Urgent
Comment:
Reason For Exam: generalized pain, positive
09/08/25 22:40
Acetaminophen [Tylenol] 650 mg PO NOW STA
09/08/25 22:57
Add On- LAB Urgent
Tests Added?: beta hcg
09/08/25 22:59
Acetaminophen [Tylenol Suspension] 500 mg PO NOW STA
Abnormal Lab Results
09/08/25
20:20
RBC 4.12 L 10^6/uL
(4.20-5.40)
Hgb 7.7 L g/dL
(12.0-16.0)
Hct 26.0 L %
(37.0-47.0)
MCV 63.1 L fL
(81.0-99.0)
MCH 18.7 L pg
(27.0-31.0)
MCHC 29.6 L g/dL
(33.0-37.0)
RDW 22.5 H %
(11.5-14.5)
MPV 10.6 H fL
(7.4-10.4)
Absolute Monos (auto) 0.7 H 10^3/uL
(0.1-0.6)
Monocytes % 10.2 H %
(1.7-9.3)
Sodium 132 L mmol/L
(135-145)
Creatinine 0.5 L mg/dL
(0.6-1.0)
Urine Ketones 1+ A
(Negative)
Urine Bacteria (Reflex) Few A
(Negative)
Urine Albumin (Reflex) 1+ A
(Neg - Trace)
09/08/25 20:20
09/08/25 20:20
Vital Signs
Initial and Last Documented VS:
Initial Vital Signs
Temp Pulse Resp BP Pulse Ox
98.5 F 103 19 111/78 100
09/08/25 20:08 09/08/25 20:08 09/08/25 20:08 09/08/25 20:08 09/08/25 20:08
Last Documented Vital Signs
Temp Pulse Resp BP Pulse Ox
98.5 F 103 19 111/78 100
09/08/25 20:08 09/08/25 20:08 09/08/25 20:08 09/08/25 20:08 09/08/25 23:18
MDM/Problems Addressed
MDM/Problems Addressed:
24-year-old female presenting for abdominal pain. Vital signs are significant for mild tachycardia.
On exam patient is resting comfortably, no acute distress or discomfort patient afebrile, nontoxic with benign abdominal exam. Patient with soft and nondistended abdomen with no focal reproducible tenderness. Low suspicion for serious
intra-abdominal process or infection at this time. Labs obtained prior to my assessment which show anemia. However, patient does appear to be close to her baseline. Patient denies any vaginal bleeding, hemodynamically stable, without indication
for transfusion. However, urine is positive for . In the setting of abdominal pain in , will obtain ultrasound imaging to ensure no evidence of acute ectopic . Tylenol ordered for pain
00:50 - Patient's ultrasound shows 2 gestational sacs. Sacs are measuring at about 5 weeks with no pole or heart rate. Suspect too early in for these findings. Did communicate results, with suspicion for twin . Patient
reports proving of pain after Tylenol. Suspect that her discomfort is secondary to underlying . Ultimately feel stable for discharge with close outpatient follow-up with her OB at [place]. Return precautions discussed and patient
verbalized under
*Pulse Oximetry
SaO2: 100
Patient hypoxic: no
*Critical Care Note
Total Time (30-74mins, 75-104mins- exclusive of procedures): Not Applicable
ED Attending Note
-
Portions of this chart may have been created with voice recognition software.� Occasional wrong word or��sound alike� substitutions may have occurred due to the inherent limitations of voice recognition software.
Discharge Plan
Departure
Prescriptions:
No Action
cephalexin 500 mg capsule
500 mg PO BID 7 Days Qty: 14 0RF
ondansetron 4 mg tablet,disintegrating
4 mg PO Q8H PRN (Reason: nausea and vomiting) Qty: 14 0RF
triamcinolone acetonide 0.5 % cream
1 applic topical BID Qty: 15 0RF
prednisone 10 mg Tablet
See Rx Instructions .ROUTE .COMPLEX Qty: 30 0RF
Rx Instructions:
Take By Mouth:
40 mg daily x3 days, 30 mg daily x3 days,
20 mg daily x3 days, 10 mg daily x3 days.
Referrals:
Kimberli Astudillo MD [Family Provider, Internal Medicine]
Interventions
Interventions:
*Risk Screen - Suicide Last Done: 09/08/25 20:10
*General Assessment Last Done: 09/08/25 20:10
*Neglect/Abuse Screening Last Done: 09/08/25 20:10
*ED COVID-19 Vaccine History Last Done: 09/08/25 20:10
*ED Influenza Vaccine History Last Done: 09/08/25 20:10
Discharge Date and Time
Print Language: FRISIAN
[2025-09-08 23:47] LABS: Beta HCG Quantitative 6755.00 mIU/ml
== END 2025-09-09 01:03 | disposition home or self-care (01) ==
LOC: EMR 20:04
PROVIDERS: Emergency Medicine; EMERGENCY PHYSICIAN Student in an Organized Health Care Education/Training Program; FAMILY PHYSICIAN Student in an Organized Health Care Education/Training Program
DX: O26.891 Other specified pregnancy related conditions, first trimester (principal); R10.9 Unspecified abdominal pain; O99.011 Anemia complicating pregnancy, first trimester; O34.219 Maternal care for unspecified type scar from previous cesarean delivery; Z3A.01 Less than 8 weeks gestation of pregnancy
CPT/HCPCS: 99284; 76801; 80053; 81003; 81015; 84702; 84703; 85025